=== PATIENT | male | born 1980 | race Caucasian/White ===

== ENCOUNTER 2021-09-15 08:10 | Outpatient (REF) | payer BC, SELFPAY ==
[2021-09-15 09:09] LABS: MANUAL DIFF FLAG NO
[2021-09-15 09:12] LABS: Basophils Absolute Auto 0.1 X10*3/uL (0.0-0.2); Basophils Percent Auto 0.6 % (0-2); Eosinophils Absolute Auto 0.1 X10*3/uL (0.0-0.4); Eosinophils Percent Auto 1.2 % (0-4); Hematocrit 46.1 % (42.0-52.0); Hemoglobin 15.2 g/dl (14.0-18.0); Imm Gran Abs Auto 0.03 X10*3/uL (0.00-0.03); Imm Gran Pct Auto 0.3 % (0.0-0.4); Lymphocytes Absolute Auto 2.2 X10*3/uL (1.2-4.9); Lymphocytes Percent Auto 23.4 % (20-40); Mean Corpuscular Hemoglobin 27.7 pg (27.0-33.0); Mean Corpuscular Volume 84.1 fL (80.0-98.0); Mean Platelet Volume 10.8 fL (9.4-12.4); Monocytes Absolute Auto 0.9 X10*3/uL (0.1-1.2); Monocytes Percent Auto 9.6 % (2-11); Neutrophils Percent Auto 64.9 % (45-73); Platelet Count 296 X10*3/uL (160-400); Red Blood Count 5.48 X10*6/uL (4.60-5.80); White Blood Count 9.3 X10*3/uL (4.8-10.8)
[2021-09-15 09:26] LABS: Alanine Aminotransferase 12 U/L (0-40); Albumin Level 4.7 g/dL (3.5-5.0); Alkaline Phosphatase 106 U/L (39-117); Anion Gap 15 (12-20); Aspartate Amino Transferase 18 U/L (5-37); Blood Urea Nitrogen 12 mg/dL (9-16); C Reactive Protein 0.09 mg/dL (< or = 0.50); Carbon Dioxide 26 mmol/L (22-29); Chloride 103 mmol/L (96-108); Estimated Glomerular Filt Rate > 60; Glucose Random 104 mg/dL (60-115); Potassium 4.6 mmol/L (3.3-5.1); Sodium 139 mmol/L (135-145); Total Protein 7.9 g/dL (6.5-8.0)
[2021-09-15 09:48] LABS: Ferritin 276 ng/mL (20-250); HBS Num1 43.43 mIU/mL (0-7.99); HBc Num1 0.12 S/CO (0.00-0.79); HBsAGNum1 0.18 S/CO (0.00-0.99); Hepatitis B Core Antibody Nonreactive (Nonreactive); Hepatitis B Surface Antigen Negative (Negative); TSH reflex Free T4 0.78 uIU/mL (0.32-4.0); Vitamin D 25-OH Total 34.9 ng/mL (>30); ~HepC Num1 0.09 S/CO (0.00-0.79); ~Hepatitis B Surface Antibody REACTIVE (Nonreactive); ~Hepatitis C Antibody Nonreactive (Nonreactive)
[2021-09-15 09:59] LABS: Erythrocyte Sedimentation Rate 3 MM/HR (0-15)
[2021-09-15 10:57] LABS: Folate 11.8 ng/mL (> or = 4.0); Vitamin B12 311 pg/mL (200-900)
[2021-09-16 08:11] LABS: Hepatitis A Antibody IgM 0.15 Index (0-0.79); ~Hepatitis A Antibody IgM Nonreactive (Nonreactive)
[2021-09-17 14:07] LABS: Transglutaminase Ab IgG <1.0 U/mL; Transglutaminase IgA <1.0 U/mL
[2021-09-17 23:38] LABS: TS Negative Control Passed; TS Panel A 0; TS Panel B 0; TS Positive Control Passed; TSpotTB Negative (Negative)
[2021-09-18 15:06] LABS: Vitamin C 1.3 mg/dL (0.2-2.1)
[2021-09-18 17:46] LABS: Histamine Plasma <1.5 ng/mL (< OR = 1.8)
[2021-09-19 11:21] LABS: Vitamin K1 446 pg/mL (130-1500)
[2021-09-19 12:17] LABS: Zinc 65 mcg/dL (60-130)
[2021-09-19 20:32] LABS: Vitamin A 53 mcg/dL (38-98)
[2021-09-20 12:12] LABS: Vitamin B6 27.5 ng/mL (2.1-21.7)
[2021-09-20 21:47] LABS: Nicotinamide <20 ng/mL; Vit B3 - Nicotinic Acid <20 ng/mL
[2021-09-22 14:52] LABS: IgA 258 mg/dL (47-310); IgG 1546 mg/dL (600-1640); IgM 100 mg/dL (50-300)
[2021-09-23 23:21] LABS: Vitamin B5 (Pantothenic Acid) 109 ng/mL (<275)
== END 2021-09-15 08:11 | disposition home or self-care (01) ==
LOC: HO.LAB 08:10
PROVIDERS: PCP Nurse Practitioner Family; Visit Provider Internal Medicine Gastroenterology
DX: Z11.1 Encounter for screening for respiratory tuberculosis (principal); R10.33 Periumbilical pain; K50.90 Crohn's disease, unspecified, without complications; R19.7 Diarrhea, unspecified; K52.839 Microscopic colitis, unspecified; K75.81 Nonalcoholic steatohepatitis (NASH); G89.29 Other chronic pain
CPT/HCPCS: 36415; 80053; 82180; 82306; 82550; 82607; 82728; 82746; 82784; 83088; 83520; 84207; 84443; 84590; 84591; 84597; 84630; 85025; 85652; 86140; 86364; 86481; 86704; 86706; 86709; 86803; 87340

== ENCOUNTER 2021-09-16 08:48 | Outpatient (REF) | payer BC, SELFPAY ==
[2021-09-20 23:02] LABS: Fecal Fat Qualitative Normal (Normal)
== END 2021-09-16 08:49 | disposition home or self-care (01) ==
LOC: HO.LNP 08:48
PROVIDERS: Visit Provider Internal Medicine Gastroenterology
DX: K50.90 Crohn's disease, unspecified, without complications (principal)
CPT/HCPCS: 82705

== ENCOUNTER → 2022-05-24 10:19 | Outpatient (BNVA) | payer BC, SELFPAY | PROVIDERS: PCP Nurse Practitioner Family; Visit Provider Internal Medicine Gastroenterology | DX: Z13.89 Encounter for screening for other disorder (principal) ==

== ENCOUNTER 2023-02-14 10:29 | Outpatient (AMB) | payer BC, SELFPAY ==
[2023-02-14 10:39] VITALS: BP 126/78; PULSE 95; BMI 25.8
--- NOTE | 2023-02-14 10:39 | A.OFFVIS_ITS ---
Intake Vital Signs 02/14/23 10:39 Height 6 ft 2 in Weight 200 lb 9.93 oz BMI 25.8 BP 126/78 Blood Pressure Location Lt brachial Position Sitting Pulse 95 Intake Visit Reasons: 6 month follow up Intake Note: Edmund presents in the office as a 6 month follow up. CC: He states that he is doing the same as the last visit. He is doing well and no major episodes in a long while. Mild gas and bloating but thats all and does not concern him. Things have been well. Allergies metaxalone [From Skelaxin] Allergy (Mild, Verified 02/14/23 10:45) Abdominal Pain, Diarrhea HPI 6 month follow up HPI Details 42 yr old patient being seen for follow up for assorted Gi sx RECAP He has long standing issues with abdominal cramps reflux issues last 5 yrs sx have changed he has flares of months of abnormal stool habits, with mucous NM, tenesmus, calf muscles he has abdominal pain RLQ/flank - he went to ED at one point and he was found to have kidney stones he is going to finally see a urologist he is on bile acid binders for suspected xs bile he has had erosions on colonoscopy, raised fecal calprotectin in past he has jejunal erosions in the past on capsule endoscopy he did have few trials of budesonide in past but was intolerant of it he takes pantoprazole at bed time and pepcid every other day occ alla mishra denies joint swelling, INTERIM: he feels well has gained weight and he believes this is a sign of his improved health he has v infrequent stomach cramps reflux is not major or too bad he has not seen blood in the stool no melena he denies nausea or vomiting no abdominal pain EXAM: GENERAL: The patient is well developed and nontoxic. VITAL SIGNS:see workflow HEENT: Nonicteric sclerae, PERRLA, EOMI. Oropharynx clear. Moist mucous membranes. Conjunctivae appear well perfused. No thyroid mass. CHEST: Chest wall is nontender. HEART: Regular rate and rhythm without murmurs. LUNGS: Clear to auscultation bilaterally. ABDOMEN: Soft, positive bowel sounds, nontender, no organomegaly.no flank tenderness SKIN: No rash, no excessive bruising, petechiae, or purpura. NEUROLOGIC: Cranial nerves II-XII intact without motor/sensory deficit. A/P: 1/ as before, I believe his prior findi ngs and history are highly suspicious for remitting and relapsing crohns disease, but he is feeling pretty good and wants to hold off on any further work up at this time, although he is open to CTe down the line Plan: 1/ f/u in about 6-8 months and he might be ok for CTe at that time ? ? PFSH Medical History Hx of nephrolithotomy with removal of calculi Surgical History History of esophagogastroduodenoscopy (EGD) Hx of colonoscopy Family History Mother Heart attack Household Members: Spouse Alcohol intake: current Alcohol intake frequency: does not drink Patient Tobacco Use Status: Never used Tobacco Physical Exam Vital Signs: Last Vital Signs Pulse 95 02/14/23 10:39 BP 126/78 02/14/23 10:39 BMI result Body Mass Index 25.8 Assessment & Plan Assessment & Plan (1) Crohn's disease: Code(s): K50.90 - Crohn's disease, unspecified, without complications Coding Level of Care Code Est Pt Level 3 (88981) Diagnoses Crohn's disease K50.90
== END 2023-02-14 11:18 | disposition home or self-care (01) ==
PROVIDERS: Visit Provider Internal Medicine Gastroenterology
DX: K50.90 Crohn's disease, unspecified, without complications (principal)
CPT/HCPCS: 99213

== ENCOUNTER → 2023-02-14 10:29 | Outpatient (BNVA) | payer BC, SELFPAY | PROVIDERS: Visit Provider Internal Medicine Gastroenterology ==

== ENCOUNTER 2023-10-07 09:10 | Outpatient (AMB) | payer BC, SELFPAY ==
--- NOTE | 2023-10-07 09:12 | A.OFFVIS_ITS ---
Vital Signs 10/07/23 09:15 Height 6 ft 1 in Weight 198 lb 6.656 oz BMI 26.2 Blood Pressure Location Lt brachial Position Sitting Intake Visit Reasons: 7 month follow up Intake Note: Edmund presents in the office as a 7 month follow up CC: bloating, gas, constipation, hemorrhoid irritation - states that he is havin g a mild flare up that has been going on for a couple months. Allergies metaxalone [From Skelaxin] Allergy (Mild, Verified 10/07/23 09:15) Abdominal Pain, Diarrhea HPI HPI 7 month follow up: Details: 42 yr old patient being seen for follow up for assorted Gi sx RECAP He has long standing issues with abdominal cramps reflux issues last 5 yrs sx have changed he has flares of months of abnormal stool habits, with mucous [place], tenesmus, calf muscles he has abdominal pain RLQ/flank - he went to ED at one point and he was found to have kidney stones he is going to finally see a urologist he is on bile acid binders for suspected xs bile he has had erosions on colonoscopy, raised fecal calprotectin in past he has jejunal erosions in the past on capsule endoscopy he did have few trials of budesonide in past but was intolerant of it he takes pantoprazole at bed time and pepcid every other day hilda mishra INTERIM:' He has been having a mild flare up last few months blaoting and gas is main concern constipation, aggravation of hemorhroids no abdominal pain mild reflux, controlled overall no melena he denies nausea or vomiting no abdominal pain denies joint swelling, EXAM: GENERAL: The patient is well developed and nontoxic. VITAL SIGNS:see workflow HEENT: Nonicteric sclerae, PERRLA, EOMI. Oropharynx clear. Moist mucous membranes. Conjunctivae appear well perfused. No thyroid mass. CHEST: Chest wall is nontender. HEART: Regular rate and rhythm without murmurs. LUNGS: Clear to auscultation bilaterally. ABDOMEN: Soft, positive bowel sounds, nontender, no organomegaly.no flank tenderness SKIN: No rash, no excessive bruising, petechiae, or purpura. NEUROLOGIC: Cranial nerves II-XII intact without motor/sensory deficit. A/P: 1/ Prior findings and history are highly suspicious for remitting and relapsing crohns disease,he is amenable to further w/u now Plan: 1/ CTe 2/ fecal calprotectin PFSH Medical History Hx of nephrolithotomy with removal of calculi Surgical History History of esophagogastroduodenoscopy (EGD) Hx of colonoscopy Family History Mother Heart attack Social History Household Members: Spouse Alcohol intake: current Alcohol intake frequency: does not drink Patient Tobacco Use Status: Never used Tobacco Physical Exam Vital Signs: BMI result Body Mass Index 26.2 Assessment & Plan Assessment & Plan (1) Crohn's disease: Code(s): K50.90 - Crohn's disease, unspecified, without complications Category: Medical Plan: as above Orders: Orders CT enterography Today K50.90 - Crohn's disease, unspecified, without complications, R10.33 - Periumbilical pain Comprehensive Met. Panel Today K50.90 - Crohn's disease, unspecified, without complications, K75.81 - Nonalcoholic steatohepatitis (FONTANA) Calprotectin, Fecal Today K50.90 - Crohn's disease, unspecified, without complications Complete Blood Count Auto Diff Today K50.90 - Crohn's disease, unspecified, without complications C Reactive Protein Today K50.90 - Crohn's disease, unspecified, without complications Erythrocyte Sedimentation Rate Today K50.90 - Crohn's disease, unspecified, without complications Coding Level of Care Code Est Pt Level 3 (77039) Diagnoses Crohn's disease K50.90
[2023-10-07 09:15] VITALS: BMI 26.2
== END 2023-10-07 09:42 | disposition home or self-care (01) ==
PROVIDERS: PCP Nurse Practitioner Family; Visit Provider Internal Medicine Gastroenterology
DX: K50.90 Crohn's disease, unspecified, without complications (principal)
CPT/HCPCS: 99213

== ENCOUNTER → 2023-10-07 09:10 | Outpatient (BNVA) | payer BC, SELFPAY | PROVIDERS: PCP Nurse Practitioner Family; Visit Provider Internal Medicine Gastroenterology ==

== ENCOUNTER 2023-12-12 07:58 | Outpatient (REF) | payer BC, SELFPAY ==
--- NOTE | ~2023-12-12 | CT_ITS ---
EXAMINATION: CT ENTEROGRAPHY ABDOMEN AND PELVIS WITH CONTRAST CLINICAL INFORMATION: Periumbilical pain. COMPARISON: CT from an outside institution dated July 29, 2021. TECHNIQUE: Study performed with oral VoLumen (1350 mL) and 480 mL of water to distend the abdomen. The patient was injected with 85 mL Omnipaque 350 intravenous contrast which was administered without adverse effect. Coronal and sagittal reformatted images were obtained at the technologist's workstation. PO: [address] examination was performed using dose optimization techniques as appropriate, variously including the following: *Automated exposure control *Adjustment of mA and/or kV according to patient size (this includes techniques or standardized protocols for targeted exams where dose is matched to indication/reason for exam; i.e. extremities or head) *Use of iterative reconstruction technique DLP: 449 mGy-cm FINDINGS: Submitted for interpretation on February 10, 2024. GASTROINTESTINAL FINDINGS: Under distended small bowel loops, particularly the jejunum loops. Stomach: Normal wall thickening. Small intestine: Questionable wall thickening in the proximal jejunal loops with narrowed lumen versus poor distention. Minimal mucosal enhancement of the terminal ileum. There is a gas and fluid-filled diverticulum, second portion of the duodenum.. Large intestine: Fluid-filled. Questionable wall thickening versus poor distention of the sigmoid colon. No pericolonic edema pattern. Additional findings: No abnormal enhancement of the vasa recta. No lymphadenopathy, mesenteric or retroperitoneal. No abdominal abscess or fistulous tract . ABDOMINAL AND PELVIC CT FINDINGS: Liver, gallbladder, biliary tract: Liver measures 15 cm. No focal mass. Focal fatty infiltration adjacent to the falciform ligament. No intrahepatic or extrahepatic biliary ductal dilatation. Main portal veins, hepatic veins and intrahepatic portion of the IVC are patent. No pericholecystic fluid collection or gallbladder wall thickening.. Pancreas: No focal mass. No peripancreatic fluid collection. No main pancreatic ductal dilatation. Spleen: 9 cm. No focal mass. Adrenal glands and kidneys: No nodular lesions in the adrenal glands. Normal enhancement pattern of the kidneys without renal mass or hydronephrosis. 1 cm fluid density in the midportion of the right kidney. Ureters and bladder: No distended ureters. Bladder is fluid-filled. Lymphovascular structures: No aneurysm or dissection abdominal aorta. Calcified plaques in the abdominal aorta wall. Bones: Multilevel thoracic and lumbar spondylosis. No acute fracture or gross listhesis. No lytic or blastic lesions. Fat-containing umbilical hernia. Lung bases: No acute airspace disease or gross pulmonary nodules in the included lungs. CT/CT enterography IMPRESSION: Probable inflammatory segments of the proximal jejunal loops and terminal ileum and possibly the sigmoid colon. Bosniak type I cyst, right kidney. Fat-containing umbilical hernia. Electronically signed by: Chad Cabrera MD 02/10/2024 11:45 AM [facility]
[2023-12-12] MEDS: iohexoL 350 MG/ML 75 ML INFUS..BTL 85 ML IV (10:10)
[2023-12-12] MEDS: Sorbitol/Mannit/Xanth Imaging 500 ML LIQUID 1500 ML PO (10:11)
== END 2023-12-12 07:59 | disposition home or self-care (01) ==
LOC: HO.CT 07:58
PROVIDERS: PCP Nurse Practitioner Family; Visit Provider Internal Medicine Gastroenterology
DX: R10.33 Periumbilical pain (principal); K50.90 Crohn's disease, unspecified, without complications
CPT/HCPCS: 74177; Q9967

== ENCOUNTER → 2023-12-12 07:58 | Outpatient (BNV) | payer BC, SELFPAY | PROVIDERS: PCP Nurse Practitioner Family; Visit Provider Radiology Diagnostic Radiology | DX: R10.33 Periumbilical pain (principal) | CPT/HCPCS: 74177 ==

== ENCOUNTER 2025-03-15 07:06 | Outpatient (REF) | payer BC, SELFPAY ==
--- OUTSIDE RECORDS SUMMARY | 2025-03-15 09:48 | XMS_ITS | Clinical Summary ---
Author Organization [facility] Prior to 08/18/24 Address [address] [place] [address] Care Team Providers Care Assistant Store Manager Operations Name Role Phone Unavailable Primary Care Provider Unavailabl e Allergies No known active allergies Immunizations Name Administration Dates Next Due Covid-19 (Pfizer) Dilution Required 07/24/2020,0 07/03/2020 Social History Tobacco Use Types Packs/Day Years Used Date Smoking Tobacco: Never Assessed Sex and Gender Information Value Date Recorded Sex Assigned at Not on file Gender Identity Not on file Sexual Orientation Not on file Job Start Date Occupation Industry Not on file Not on file Not on file Plan of Treatment Health Maintenance Due Date Last Done Comments Hepatitis B Vaccines (1 of 3 - 3-dose series) 1978 Hepatitis C Screening 1978 Depression Screening 1990 Preventative Health Evaluation 1996 DTap / Tdap / Td (1 - Tdap) 1997 Colon Cancer Screening (Colonoscopy) 11/28/2023 COVID-19 Vaccine (2024-2 6 season) 2024 07/24/2020, 07/03/2020 Influenza Vaccine (#1) 2024 Pneumococcal Vaccine Aged Out No long er eligible based on patient's age to complete this topic RSV Ped < 20 months Aged Out No longe r eligible based on patient's age to complete this topic
--- OUTSIDE RECORDS SUMMARY | 2025-03-15 09:48 | XMS_ITS ---
Author Name [facility] Organization Unknown Problems Problem Status Onset Date Problem Type Date of Resolution Source Need for vaccination active EncounterDiagnosisAct [facility] Immunizations Vaccine Date Source Lot Number Status [employer] Covid-19 Pr efilled Syringe (12+ yrs) 01/16/2024 [id number] completed Encounters Encounter Type Encounter Reason Primary Diagnosis Location Date Ambulatory Flu Vaccine Encounter for immunization [facility] 01/16/2024 Care Team Organization Name Specialty Phone Email Start Date End Da te [facility] Caitlin Cis[facility] 01/16/2024
--- OUTSIDE RECORDS SUMMARY | 2025-03-15 09:48 | XMS_ITS | Clinical Summary ---
Author Organization [facility] Address [address] [place] [id number] Care Team Providers Care Senior Mechanical Engineer Name Role Phone Unavailable Primary Care Provider Unavailabl e Social History Tobacco Use Types Packs/Day Years Used Date Smoking Tobacco: Never Assessed Sex and Gender Information Value Date Recorded Sex Assigned at Not on file Legal Sex Male 12:38 PM EDT Gender Identity Not on file Sexual Orientation Not on file Plan of Treatment Health Maintenance Due Date Last Done Comments Hepatitis C Virus Screening 1978 HIV Screening 11/28/1991 DTaP/Tdap/Td Vaccines (1 - Tdap) 1997 Hepatitis B Vaccines (1 of 3 - 19+ 3-dose series) 1997 COVID-19 Vaccine (2024-2 6 season) 2024 Pneumococcal Vaccine: Pediat andrew (0-5 Years) and At-Risk Patients (6 to 49 Years) Aged Out No longer eligible b ased on patient's age to complete this topic
== END 2025-03-15 07:07 | disposition home or self-care (01) ==
LOC: HO.LNP 07:06
PROVIDERS: Visit Provider Internal Medicine Gastroenterology
DX: K50.918 Crohn's disease, unspecified, with other complication (principal)
CPT/HCPCS: 83631